=== PATIENT | male | born 1970 | race Caucasian/White ===

== ENCOUNTER 2020-07-06 13:51 | Inpatient (IN) | payer OTHER, SELFPAY ==
[~2020-07-06] VITALS: Ht 175.3 cm; Wt 64.9 kg
[2020-07-06] VITALS (8 sets, daily range): BP systolic 93–117
[2020-07-06] MEDS ORDERED: THIAMINE HCL 100 MG in NS 50 ML IV ONE (14:00)
[2020-07-06] MEDS ORDERED: NACL 0.9% 1,000 ML IV ONE (14:00)
[2020-07-06] MEDS ORDERED: FOLIC ACID 5 MG/ML VIAL IV ONE (14:00)
--- NOTE | 2020-07-06 14:00 | NUR ---
Patient to ER bed 2 to gown for evaluation. Side rails up
--- NOTE | 2020-07-06 14:00 | NUR ---
Pt came to ER with ALOC, reports from [facility] states family called with concerns he has deviated from baseline. Pt abuses ETOH and is currently AOx3 responsive to voice
--- NOTE | 2020-07-06 14:05 | NUR ---
JORDY Sim at bedside examining patient.
[2020-07-06] MEDS ORDERED: FOLIC ACID IV ONE (14:11)
[2020-07-06] MEDS ORDERED: THIAMINE HCL IV ONE (14:11)
[2020-07-06] MEDS ORDERED: NS IV ONE (14:11)
[2020-07-06 14:28] LABS: BASOPHILS % (AUTO) 0.1 % (0.0-2.0); EOSINOPHILS % (AUTO) 0.1 % (0.0-4.0); HEMOGLOBIN 12.3 g/dL (14.0-18.0); LYMPHOCYTES # (AUTO) 1.3 K/uL (1.0-5.5); MEAN CORPUSCULAR HEMOGLOBIN 38 pg (27-31); MEAN CORPUSCULAR HGB CONC 37 % (32-36); MEAN CORPUSCULAR VOLUME 102 fL (79.0-98.0); MONOCYTES # (AUTO) 0.7 K/uL (0.0-1.0); MONOCYTES % (AUTO) 6.5 % (1.7-9.3); NEUTROPHILS # (AUTO) 8.8 K/uL (1.8-7.7); NEUTROPHILS % (AUTO) 81.3 % (40.0-70.0); PLATELET COUNT (AUTO) 396 K/uL (130-430); RED BLOOD CELL COUNT(AUTO) 3.25 MIL/uL (4.2-6.2); RED CELL DISTRIBUTION WIDTH 12.8 % (9.0-15.0); WHITE BLOOD COUNT (AUTO) 10.8 K/uL (4.8-10.8)
[2020-07-06 14:42] LABS: ALANINE AMINOTRANSFERASE 21 U/L (12-78); ALBUMIN 2.4 g/dL (3.4-4.8); ASPARTATE AMINOTRANSFERASE 40 U/L (10-37); CALCIUM 8.9 mg/dL (8.4-11.0); GLUCOSE 180 mg/dL (70-99); SODIUM SERUM 135 mmol/L (136-145); TOTAL BILIRUBIN 2.8 mg/dL (0.0-1.0); UREA NITROGEN, BLOOD 25 mg/dL (8-21)
[2020-07-06 14:54] LABS: ALCOHOL, BLOOD < 3 mg/dL (<10); ANION GAP 1 (5-15); GFR AFRICAN AMERICAN 75 mL/min (>90)
[2020-07-06 14:55] LABS: CHLORIDE 77 mmol/L (98-107); POTASSIUM 1.2 mmol/L (3.5-5.1)
[2020-07-06] MEDS ORDERED: KCL 20 mEq in 100 mL (PREMIX) 100 ML IV ONE (15:00)
--- NOTE | 2020-07-06 15:00 | NUR ---
Patient noted fidgeting with monitoring equipment. Educated pt regarding need for monitoring. Pt states understanding but is uncooperative.
--- NOTE | 2020-07-06 15:40 | NUR ---
Shelly reed in ED - 07/06/20 at 1805 by WILMAR Patient brought to ICU 2 via cele. Report given to receiving RN.
[2020-07-06 16:03] LABS: BILIRUBIN,URINE 3+ (NEGATIVE); CLARITY/URINE CLEAR (CLEAR); GLUCOSE,URINE TRACE (NEGATIVE); KETONES,URINE 2+ (NEGATIVE); LEUKOCYTE ESTERASE ,URINE NEGATIVE (NEGATIVE); NITRITE, URINE POSITIVE (NEGATIVE); PH,URINE 6.5 (5.0-8.0); PROTEIN URINE 2+ (NEGATIVE)
[2020-07-06 16:11] LABS: COLOR,URINE AMBER (YELLOW)
[2020-07-06 16:13] LABS: BLOOD, URINE TRACE (NEGATIVE); UROBILINOGEN,URINE >=8 (0.2-1.0)
--- NOTE | 2020-07-06 16:15 | NUR ---
Physician order given to place soft type restraints to bilateral wrists to prevent pulling out IV and monitoring equipment. Resraints placed with quick-release ties to bed frame. Patient unable to adhere with instructions and is uncooperative with care. Will monitor patient frequently.
--- NOTE | 2020-07-06 16:15 | NUR ---
Noted IV outside of pt, catheter tip intact, bleeding controlled. Educated pt regarding need for treatment, pt uncooperative. # 20 gauge angiocath placed to right FA. Use of asceptic technique. Opsite placed over site. Blood return noted. Flushed with 10 cc of normal saline. No evidence of infiltration noted. Patient tolerated well.
[2020-07-06 16:32] LABS: RBC,URINE 0-3 /HPF (0-3)
[2020-07-06 16:33] LABS: BACTERIA,URINE MANY /HPF (None Seen)
[2020-07-06 16:34] LABS: MUCUS,URINE None Seen /LPF (None Seen)
--- NOTE | 2020-07-06 16:35 | NUR ---
Patient will be admitted to care of Dr. Santoyo. Admitted to ICU. Belongings list completed. Complete and up to date summary report printed. SBAR report to be given at bedside with opportunity for questions.
[2020-07-06 16:47] LABS: BARBITURATE, URINE NEGATIVE (NEG <=200); BENZODIAZEPINE, URINE NEGATIVE (NEG <=150); CANNABINOID, URINE NEGATIVE (NEG <=50); COCAINE, URINE NEGATIVE (NEG <=150); METHAMPHETAMINES SCREEN,URINE NEGATIVE (NEG <=500); OPIATE, URINE NEGATIVE (NEG <=100); PHENCYCLIDINE SCREEN,URINE NEGATIVE (NEG <=25); UR TRICYCLIC ANTIDEPRESSANTS NEGATIVE (NEG <=300); URINE AMPHETAMINE NEGATIVE (NEG <=500); URINE METHADONE NEGATIVE (NEG <=200); URINE OXYCODONE SCREEN NEGATIVE (NEG <=100); URINE PROPOXYPHENE SCREEN NEGATIVE (NEG <=300)
--- NOTE | 2020-07-06 17:40 | NUR ---
Patient brought to ICU 2 via gurney. Report given to receiving RN. Bill rider still infusing, restraints in place for safety.
--- NOTE | 2020-07-06 18:00 | NUR ---
ADMIT NOTE Received pt from ER to the ICU with a diagnosis of Hypokalemia. Admission process initiated. patient oriented to pain management, safety and call light-teach back done. Patient placed in ICU room 2, attached to hospital monitor.
[2020-07-06] MEDS ORDERED: HYDROcodone/ACETAMIN 5-325 MG TAB (NORCO/ VICODIN) PO PRN (18:30)
[2020-07-06] MEDS ORDERED: ACETAMINOPHEN 325 MG TABLET PO PRN (18:30)
[2020-07-06] MEDS ORDERED: LORazepam 2 MG/ML VIAL IVP PRN (18:30)
[2020-07-06] MEDS ORDERED: NALOXONE HCL 0.4 MG/ML AMP (NARCAN) IVP PRN ×2 (18:30)
[2020-07-06] MEDS ORDERED: HYDROcodone/ACETAMIN 10-325 MG TAB PO PRN (18:30)
--- NOTE | 2020-07-06 19:25 | NUR ---
PM SHIFT ASSESSMENT Pt is awake but confused. O2 via NC @ 1L, RR even and unlabored. SR on monitor. Skin warm and dry. IV in place. Belongings at bedside. Safety precautions in place, call light within reach. Will continue to monitor.
[2020-07-06] MEDS: chlordiazePOXIDE HCL 25 MG CAPSULE PO SCH (20:06)
[2020-07-06] MEDS: KCL 10 mEq in D5/0.45NS 1000mL 1,000 ML IV SCH (20:06)
--- NOTE | 2020-07-06 23:55 | NUR ---
HERRON CATH: # 16 FR Herron catheter with 10 cc bulb inserted with use of sterile technique. Bulb inflated with 10 cc sterile water. Immediate return of 200 cc marquez color urine noted. Bedside drainage bag placed below level of bladder. Pt tolerated procedure well.
[2020-07-07] VITALS (24 sets, daily range): BP systolic 97–132
[2020-07-07] MEDS: KCL 10 mEq in D5/0.45NS 1000mL 1,000 ML IV SCH (06:01)
[2020-07-07 06:21] LABS: BASOPHILS % (AUTO) 0.5 % (0.0-2.0); EOSINOPHILS # (AUTO) 0.1 K/uL (0.0-0.4); EOSINOPHILS % (AUTO) 1.3 % (0.0-4.0); HEMATOCRIT 28.1 % (36-54); HEMOGLOBIN 10.4 g/dL (14.0-18.0); LYMPHOCYTES # (AUTO) 1.8 K/uL (1.0-5.5); LYMPHOCYTES % (AUTO) 22.1 % (20.5-51.5); MEAN CORPUSCULAR HEMOGLOBIN 38 pg (27-31); MEAN CORPUSCULAR HGB CONC 37 % (32-36); MEAN CORPUSCULAR VOLUME 102 fL (79.0-98.0); MONOCYTES # (AUTO) 0.7 K/uL (0.0-1.0); MONOCYTES % (AUTO) 8.3 % (1.7-9.3); NEUTROPHILS # (AUTO) 5.4 K/uL (1.8-7.7); NEUTROPHILS % (AUTO) 67.8 % (40.0-70.0); PLATELET COUNT (AUTO) 306 K/uL (130-430); RED BLOOD CELL COUNT(AUTO) 2.76 MIL/uL (4.2-6.2); RED CELL DISTRIBUTION WIDTH 12.9 % (9.0-15.0)
[2020-07-07 07:13] LABS: ALANINE AMINOTRANSFERASE 25 U/L (12-78); ALBUMIN 1.8 g/dL (3.4-4.8); ASPARTATE AMINOTRANSFERASE 31 U/L (10-37); CALCIUM 7.8 mg/dL (8.4-11.0); CREATININE 0.72 mg/dL (0.55-1.30); GLUCOSE 105 mg/dL (70-99); PHOSPHORUS 2.8 mg/dL (2.7-4.5); SODIUM SERUM 133 mmol/L (136-145); TOTAL BILIRUBIN 1.8 mg/dL (0.0-1.0); UREA NITROGEN, BLOOD 14 mg/dL (8-21)
--- NOTE | 2020-07-07 07:20 | NUR ---
Received patient and endorsed report from [facility] shift nurse. Side rails x 3 up.
--- NOTE | 2020-07-07 07:24 | NUR ---
ENDORSEMENT Pt care endorsed to dayshift RN using nursing SBAR.
[2020-07-07 07:50] LABS: CHLORIDE 83 mmol/L (98-107)
[2020-07-07 07:55] LABS: GFR AFRICAN AMERICAN 149 mL/min (>90)
[2020-07-07 07:59] LABS: POTASSIUM 1.3 mmol/L (3.5-5.1)
[2020-07-07 08:00] LABS: ANION GAP < 3 (5-15)
--- NOTE | 2020-07-07 08:22 | NUR ---
Nutrition Update Luis scale 16 noted. Pt admitted for hypokalemia Diet: Regular Diet BMI: 10.7 kg/m2 RD to follow per nutrition care standards.
--- NOTE | 2020-07-07 08:26 | NUR ---
CONSULTATION PAGED PRIORITY: ROUTINE REASON FOR CONSULTATION?:HIGH CO2, HYPOKALEMIA WAS CONSULT CALLED:Y PERSON WHO WAS NOTIFIED:ANDREAS CONSULTING PHYSICIAN:FARHANA MENON PERINATAL EDUCATOR SPECIALTY:NEPHRO PERINATAL EDUCATOR PHONE NUMBER:[phone] REQUESTING PHYSICIAN:HORACIO TRACEY
--- NOTE | 2020-07-07 08:29 | NUR ---
CONSULTATION PAGED PRIORITY: ROUTINE REASON FOR CONSULTATION?:HIGH CO2, HYPOKALEMIA WAS CONSULT CALLED:Y PERSON WHO WAS NOTIFIED:'S PAGER PAGED CONSULTING PHYSICIAN:BACILIO ALEMAN LUMBER YARD WORKER SPECIALTY:PULMONARY LUMBER YARD WORKER PHONE NUMBER:[phone] REQUESTING PHYSICIAN:HORACIO TRACEY
[2020-07-07] MEDS: FOLIC ACID 1 MG TABLET PO SCH (08:38)
[2020-07-07] MEDS: POTASSIUM CHLORIDE 20 MEQ TAB.PRT.SR PO SCH ×2 (08:38→20:19)
[2020-07-07] MEDS: chlordiazePOXIDE HCL 25 MG CAPSULE PO SCH ×3 (08:39→20:47)
[2020-07-07] MEDS: THIAMINE HCL 100 MG TABLET PO SCH (08:39)
[2020-07-07] MEDS: MULTIVITAMINS TAB 1 TABLET PO SCH (08:39)
[2020-07-07] MEDS ORDERED: POTASSIUM CHLORIDE 40 MEQ in NS 250 ML IV ONE ×2 (09:00→16:30)
[2020-07-07] MEDS: POTASSIUM CHLORIDE 40 MEQ in D5NS 1,000 ML IV SCH ×2 (10:30→20:19)
[2020-07-07 12:22] LABS: CALCIUM 7.8 mg/dL (8.4-11.0); CREATININE 0.54 mg/dL (0.55-1.30); GLUCOSE 111 mg/dL (70-99); SODIUM SERUM 138 mmol/L (136-145); UREA NITROGEN, BLOOD 13 mg/dL (8-21)
[2020-07-07 12:33] LABS: CHLORIDE 85 mmol/L (98-107)
[2020-07-07 12:42] LABS: GFR AFRICAN AMERICAN 207 mL/min (>90); POTASSIUM 1.7 mmol/L (3.5-5.1)
[2020-07-07 12:45] LABS: ANION GAP < 3 (5-15)
--- NOTE | 2020-07-07 12:46 | NUR ---
Supervisor Home Economics: social work referral, conduct a DCPA JUKEBOX CHECKER went to see pt. bedside. Pt. was asleep and would not awake after numerous attempts. JUKEBOX CHECKER walked to Rn. station. Erum Conrad stated pt. has been hard to awaken. His potassium is very low and he is very sleepy. She added his Etoh was low and no drugs in his system. JUKEBOX CHECKER will try again later. JUKEBOX CHECKER went to attempt to meet with pt. again. Erum Nicole stated pt still will not awaken. JUKEBOX CHECKER will try again later to meet with pt. Addendum: 07/07/20 at 1400 by Elana Zhu JUKEBOX CHECKER Supervisor Home Economics: follow up JUKEBOX CHECKER went to ICU to attempt to meet with pt. once again. Rn. Conrad stated pt. has been sleeping. A family member called for an update and shared, this is what pt. does, deep sleep and at times not know who she is. She also shared with Rn. Conrad that pt. lost 100 lbs. since February. Pt. lost is job (Covid related), does not eat, just drinks alcohol. Pts. Potassium levels are critical at this time. JUKEBOX CHECKER went to pts. room and attempted to awaken him to no avail.
--- NOTE | 2020-07-07 14:00 | NUR ---
PAGED PAGED FARHANA MENON AT [phone] SPOKE WITH FRANKLIN.
[2020-07-07] MEDS ORDERED: KCL 20 mEq in 100 mL (PREMIX) 100 ML IV ONE (14:30)
--- NOTE | 2020-07-07 17:04 | NUR ---
Oil Field Pumper :Follow up MANAGER DELI went to meet with pt. who was still asleep and would not awaken. MANAGER DELI called and spoke to pts mother who handed phone to her granddaughter as she was hard of hearing. This person is pts. Niece, Raven Alamo (Rn at [facility] in [facility]). She assisted MANAGER DELI in the DCPA. She stated they assisted pt. in getting Medical because he has not been feeling well. MANAGER DELI forwarded the info to Thea . person id, [id number] Customer ID [id number]. MANAGER DELI also sent message to Suzi asking her to add Raven to the contacts with a phone of [phone]. [place] stated pt. was here in 06/27/20 and refused all services. 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 He fell into a deep depression and began heavily drinking more than in the past. He lost 100 lbs since february and has not eaten. Within the last 1-2 months, patient has been falling 2-3 times daily. He use to be a happy drunk , now he says, "Please remember me ok". Pt will try to get out of bed to use the restroom and will not make it so he soils his clothing and his 85 year old mom had to clean him up. When MANAGER DELI asked Raven if pt. has ever been Dx. with depression, she stated he has has episodes of depression a few years back. To her knowledge, he has never been Dx. because he never goes to the Drs. When asked she stated pt. has been saying to her, "Remember me ok". When asked she believes pt. has been suicidal. A while ago, her father, pts. brother took pts. guns because he has a safe to store them. Pt. has been asking for them back on a continuous basis. MANAGER DELI called to speak to Erum Conrad, but she was with a pt. MANAGER DELI spoke to Zoie Mendosa who will share with Rn. MANAGER DELI is requesting to request a psyc consult when patient becomes coherent for the above reasons mentioned. MANAGER DELI will remain available for follow up.
--- NOTE | 2020-07-07 17:06 | NUR ---
MD Go at bedside, ordered BMP every 6 hours x 6, bilateral wrist restraints due to patient attempting to remove lines and tubes despite educations of pros and cons x 3, and to ask MD Preston about diamox. Orders placed. Addendum: 07/07/20 at 1710 by Anamaria Vasquez RN wrong note: bilateral wrist restraints not ordered.
--- NOTE | 2020-07-07 17:36 | NUR ---
PAGED PAGED FARHANA MENON AT [phone]PHAM FINNEY SHERI RESOURCE ROOM TEACHER.
--- NOTE | 2020-07-07 17:51 | NUR ---
CONSULTATION PAGED PRIORITY: ROUTINE REASON FOR CONSULTATION?:SUICIDAL IDEATION WAS CONSULT CALLED:Y PERSON WHO WAS NOTIFIED:JEAN-CLAUDE CONSULTING PHYSICIAN:DEANDRE ARANA ( INSURANCE RISK SURVEYOR) FOREIGN LANGUAGE PROFESSOR SPECIALTY:PSYCH FOREIGN LANGUAGE PROFESSOR PHONE NUMBER:[phone] REQUESTING PHYSICIAN:HORACIO TRACEY
--- NOTE | 2020-07-07 17:55 | NUR ---
MD Elias called, informed MD Go permission of Diamox use, MD Elias approved. Paged MD Preston.
[2020-07-07 18:07] LABS: CALCIUM 7.9 mg/dL (8.4-11.0); CREATININE 0.67 mg/dL (0.55-1.30)
--- NOTE | 2020-07-07 18:10 | NUR ---
MD Santoyo at bedside, requested DVT prophylaxis, new order bilateral SCDs. Informed certified social workers in health care's request to inform MD Santoyo of family's request for psych consult due to patient requesting gun back and telling family to remember him always, MD Santoyo stated will put in psych consult order himself.
--- NOTE | 2020-07-07 18:20 | NUR ---
MD Go called back, new order Diamox 250 mg every 8 hours x 3 doses. Orders placed.
[2020-07-07 18:24] LABS: POTASSIUM 1.9 mmol/L (3.5-5.1)
--- NOTE | 2020-07-07 18:52 | NUR ---
MD Go paged for latest potassium 1.9 and CO2 at 59 from the latest BMP drawn from 1800, MD Go stated to continue to monitor and only call if potassium decreases and CO2 increases.
--- NOTE | 2020-07-07 19:20 | NUR ---
Endorsed patient and gave report to NOC shift nurse. Side rails x 3 up. Call light with in reach.
--- NOTE | 2020-07-07 19:35 | NUR ---
OPENING NOTE: RECEIVED SBAR REPORT FROM OFFCOMING RN FOR CONTINUITY OF CARE. PT RESTING IN BED, NO S/S OF ACUTE DISTRESS NOTED. PT ON 2L OF O2 VIA NC, OXYGEN SATURATION MAINTAINED ABOVE 90%. KCHL IN D5 NS INFUSING @ 100 ML/HR. HERRON CATHETER IN PLACE AND DRAINING TO GRAVITY. WILL CONTINUE TO MONITOR AND ASSESS.
[2020-07-07] MEDS: ONDANSETRON HCL 4 MG/2 ML VIAL IVP PRN (20:36)
--- NOTE | 2020-07-07 21:00 | NUR ---
PT RESTING IN BED, A/O X 2 (PERSON AND PLACE). PT REMAINS CONFUSED AND MUMBLES AND SLURS WORDS. PT ABLE TO FOLLOW SIMPLE COMMANDS AND IS REDIRECTABLE. PT ON 2 L O2 VIA NC, PT'S O2 SATURATION ABOVE 90%. PT REMOVES NC AT TIMES AND SATURATIONS MAINTAINED BUT WILL DROP AT TIMES WHEN SLEEPING. REPLACED PT'S NC TO MAINTAIN OXYGEN SATURATION ABOVE 90%. ENCOURAGED PO INTAKE, PT TOLERATED WELL BUT NEEDS ASSISTANCE. K CHL 40 MEQ INFUSING @ 100 ML/HR. HERRON CATHETER IN PLACE AND DRAINING TO GRAVITY, KOLE URINE NOTED. WILL CONTINUE TO MONITOR AND ASSESS.
[2020-07-08] VITALS (16 sets, daily range): BP systolic 92–136
[2020-07-08 00:49] LABS: CALCIUM 7.7 mg/dL (8.4-11.0); CHLORIDE 94 mmol/L (98-107); GLUCOSE 107 mg/dL (70-99); SODIUM SERUM 139 mmol/L (136-145); UREA NITROGEN, BLOOD 14 mg/dL (8-21)
[2020-07-08 00:55] LABS: GFR AFRICAN AMERICAN 183 mL/min (>90)
[2020-07-08 00:56] LABS: POTASSIUM 1.8 mmol/L (3.5-5.1)
[2020-07-08 00:57] LABS: ANION GAP < 3 (5-15)
--- NOTE | 2020-07-08 01:00 | NUR ---
DR. ROSALINA SHARMA PAGED AT THIS TIME FOR ORDERS AT [phone]. WILL AWAIT MD CALL BACK
[2020-07-08] MEDS ORDERED: POTASSIUM CHLORIDE 40 MEQ in NS 250 ML IV ONE (01:15)
[2020-07-08] MEDS ORDERED: POTASSIUM CHLORIDE 20 MEQ in NS 250 ML IV ONE (01:15)
--- NOTE | 2020-07-08 01:15 | NUR ---
DR. ROSALINA BAHENA:CRITICAL LABS (K AND CO2) DR KAT REFRIGERATION BRAZER/SOLDERER, INFORMED DR. KAT OF PT'S K 1.8 (DROPPED FROM LAST K) AND CO2 49 (DROPPED FROM LAST CO2). ORDERED 60 MEQ K RIDER TO BE ADMINISTERED AND TO MONITOR PT'S NEXT K IN THE AM. WILL FOLLOW THROUGH WITH ORDERS.
[2020-07-08] MEDS: KCL 20 mEq in 100 mL (PREMIX) 100 ML IV SCH ×3 (01:47→05:34)
[2020-07-08 06:27] LABS: ALANINE AMINOTRANSFERASE 21 U/L (12-78); ALBUMIN 1.6 g/dL (3.4-4.8); ASPARTATE AMINOTRANSFERASE 28 U/L (10-37); CALCIUM 7.7 mg/dL (8.4-11.0); CHLORIDE 97 mmol/L (98-107); CREATININE 0.69 mg/dL (0.55-1.30); GLUCOSE 106 mg/dL (70-99); PHOSPHORUS 2.5 mg/dL (2.7-4.5); SODIUM SERUM 136 mmol/L (136-145); TOTAL BILIRUBIN 1.2 mg/dL (0.0-1.0); UREA NITROGEN, BLOOD 8 mg/dL (8-21)
[2020-07-08 06:28] LABS: GFR AFRICAN AMERICAN 156 mL/min (>90); POTASSIUM 2.3 mmol/L (3.5-5.1)
[2020-07-08 06:31] LABS: ANION GAP < 3 (5-15)
[2020-07-08] MEDS: POTASSIUM CHLORIDE 40 MEQ in D5NS 1,000 ML IV SCH ×2 (06:56→19:24)
--- NOTE | 2020-07-08 07:20 | NUR ---
CLOSING NOTE: ENDORSED SBAR REPORT TO ONCOMING RN FOR CONTINUITY OF CARE.
--- NOTE | 2020-07-08 07:30 | NUR ---
Opening Note Received bedside report from endorsing RN for continuation of care. Received patient lethargic and resting in bed, arousable to voice. Patient denies any pain or SOB at this time. No signs or symptoms of acute distress noted. Bed locked in lowest position, bed alarm on, and call light within reach. Education provided on use of call light and patient verbalized understanding. Fall and safety precautions in place.
[2020-07-08] MEDS: chlordiazePOXIDE HCL 25 MG CAPSULE PO SCH (09:00)
[2020-07-08 09:43] LABS: BASOPHILS # (AUTO) 0.1 K/uL (0.0-0.2); BASOPHILS % (AUTO) 0.7 % (0.0-2.0); EOSINOPHILS # (AUTO) 0.1 K/uL (0.0-0.4); HEMATOCRIT 26.2 % (36-54); HEMOGLOBIN 9.2 g/dL (14.0-18.0); LYMPHOCYTES # (AUTO) 1.7 K/uL (1.0-5.5); LYMPHOCYTES % (AUTO) 20.2 % (20.5-51.5); MEAN CORPUSCULAR HEMOGLOBIN 38 pg (27-31); MEAN CORPUSCULAR HGB CONC 35 % (32-36); MEAN CORPUSCULAR VOLUME 108 fL (79.0-98.0); MONOCYTES # (AUTO) 0.6 K/uL (0.0-1.0); MONOCYTES % (AUTO) 7.1 % (1.7-9.3); NEUTROPHILS # (AUTO) 5.8 K/uL (1.8-7.7); PLATELET COUNT (AUTO) 262 K/uL (130-430); RED BLOOD CELL COUNT(AUTO) 2.43 MIL/uL (4.2-6.2); RED CELL DISTRIBUTION WIDTH 13.5 % (9.0-15.0); WHITE BLOOD COUNT (AUTO) 8.2 K/uL (4.8-10.8)
[2020-07-08] MEDS: FOLIC ACID 1 MG TABLET PO SCH (09:53)
[2020-07-08] MEDS: THIAMINE HCL 100 MG TABLET PO SCH (09:53)
[2020-07-08] MEDS: MULTIVITAMINS TAB 1 TABLET PO SCH (09:53)
[2020-07-08] MEDS: POTASSIUM CHLORIDE 20 MEQ TAB.PRT.SR PO SCH ×2 (09:53→20:37)
[2020-07-08] MEDS ORDERED: POTASSIUM CHLORIDE 20 MEQ TAB.PRT.SR PO ONE ×2 (10:15→19:00)
--- NOTE | 2020-07-08 10:15 | NUR ---
Dr. Go ([facility]) at bedside examining patient. New orders received.
--- NOTE | 2020-07-08 10:24 | NUR ---
Telemetry Status Patient stable to transfer to telemetry unit per Dr. Go ([facility]). Patient will remain in ICU and be monitored under telemetry status until hospital room and bed become available.
--- NOTE | 2020-07-08 10:38 | NUR ---
Dr. Jimenez (PSYCH) at bedside examining patient. Per Dr. Jimenez, patient is not suicidal. New orders received.
[2020-07-08] MEDS ORDERED: chlordiazePOXIDE HCL 25 MG CAPSULE PO PRN (10:45)
--- NOTE | 2020-07-08 11:55 | NUR ---
Dr. Rakan Santoyo at bedside examining patient. New orders received.
[2020-07-08 12:14] LABS: CALCIUM 7.7 mg/dL (8.4-11.0); CREATININE 0.73 mg/dL (0.55-1.30)
[2020-07-08 12:17] LABS: POTASSIUM 2.2 mmol/L (3.5-5.1)
--- NOTE | 2020-07-08 13:05 | NUR ---
Dietitian Recommendations * Continue regular diet * Recommend high kcal/pro snacks TID * Recommend Ensure Enlive TID (Provides additional 1050 kcals, 60 g Pro per day) Please see Nutrition Assessment for details. SS, RD
--- NOTE | 2020-07-08 14:20 | NUR ---
Patient is lethargic but arousable answer simple question drowsy, vitals sign WNL ,telemetry NSR, with IV fluid infusing well safety/fall precaution initiated,will monitor
--- NOTE | 2020-07-08 14:26 | NUR ---
Transfer to Telemetry Patient transferred to telemetry unit room 112-B via wheelchair on continuous machine precision etcher, accompanied by ACLKhanh RN. Endorsed bedside report to Holly VALDEZ using SBAR approach for continuation of care.
--- NOTE | 2020-07-08 15:00 | NUR ---
GI Had a bowel movement semi loose stool brown color perineal care given , patient able to turn with help as instructed , no sign of pressure sore , kept/dry clean.
--- NOTE | 2020-07-08 17:00 | NUR ---
Neuro Patient is lethargic but easily arousable compare earlier , repositioned,needs attended.
[2020-07-08] MEDS: ONDANSETRON HCL 4 MG/2 ML VIAL IVP PRN (18:07)
--- NOTE | 2020-07-08 18:19 | NUR ---
Assisted in feeding no aspiration with poor appetite.
[2020-07-08 18:41] LABS: CALCIUM 8.1 mg/dL (8.4-11.0); CHLORIDE 102 mmol/L (98-107); CREATININE 0.64 mg/dL (0.55-1.30); GLUCOSE 118 mg/dL (70-99); SODIUM SERUM 143 mmol/L (136-145); UREA NITROGEN, BLOOD 8 mg/dL (8-21)
[2020-07-08 18:46] LABS: GFR AFRICAN AMERICAN 170 mL/min (>90); POTASSIUM 2.3 mmol/L (3.5-5.1)
[2020-07-08 18:48] LABS: ANION GAP < 3 (5-15)
--- NOTE | 2020-07-08 18:48 | NUR ---
Paged Dr. HUTCHINSON for critical lab result K 2.3 , CO2 40
--- NOTE | 2020-07-08 19:10 | NUR ---
OPENING NOTE RECEIVE REPORT AT BEDSIDE. PATIENT AOX1. AWAKE BUT LETHARGIC, ABLE TO FOLLOW ON COMMANDS. NO SIGNS OF RESPIRATORY DISTRESS AND DISCOMFORT NOTED. ON ROOM AIR TOLERATING WELL, O2 SATURATION OF 96%. HERRON CATHETER DRAINING WELL. IVF INFUSING WELL. SCD'S OPERATING WELL. CALL LIGHT WITHIN REACH. BED LOCKED AND IN LOWEST POSITION. SAFETY PRECAUTIONS IN PLACE. BED ALARM ON. WILL CONTINUE TO MONITOR PATIENT.
--- NOTE | 2020-07-08 20:37 | NUR ---
MED PASS DUE MEDICATION GIVEN AT THIS TIME. PATIENT WAS EDUCATED ON MEDICATION THAT WAS TAKEN FOR ITS PURPOSE, SIDE EFFECT AND BENEFITS. PATIENT UNABLE TO VERBALIZED UNDERSTANDING. PATIENT IS DROWSY. NO SIGNS OF RESPIRATORY DISTRESS AND DISCOMFORT NOTED. ON ROOM AIR TOLERATING WELL AT 96%. CALL LIGHT WITHIN REACH. SAFETY PRECAUTIONS IN PLACE. WILL CONTINUE TO MONITOR PATIENT
--- NOTE | 2020-07-08 23:47 | NUR ---
KIRSTIN CARE/ VITAL SIGNS KIRSTIN CARE, VITAL SIGNS DONE AT THIS TIME. PATIENT TOLERATED WELL. NO SIGNS OF RESPIRATORY DISTRESS AND DISCOMFORT NOTED. BREATHING EVEN AND UNLABORED. ON ROOM AIR TOLERATING WELL. O2 SATURATION OF 96%. DROWSY BUT PATIENT FOLLOW ON COMMANDS. IVF INFUSING WELL. SCD'S OPERATING WELL. CALL LIGHT WITHIN REACH. SAFETY PRECAUTIONS IN PLACE. WILL CONTINUE TO MONITOR PATIENT
[2020-07-09 02:02] VITALS: BP_SYST 126
--- NOTE | 2020-07-09 02:15 | NUR ---
RN ROUNDS PATIENT ASLEEP AT THIS TIME. NO SIGNS OF RESPIRATORY DISTRESS AND DISCOMFORT NOTED. BREATHING EVEN AND UNLABORED. ON ROOM AIR TOLERATING WELL, 02 SATURATION OF 95%. IVF INFUSING WELL. CALL LIGHT WITHIN REACH. SAFETY PRECAUTIONS IN PLACE. WILL CONTINUE TO MONITOR PATIENT
[2020-07-09] MEDS: POTASSIUM CHLORIDE 40 MEQ in D5NS 1,000 ML IV SCH ×3 (03:55→23:24)
--- NOTE | 2020-07-09 04:26 | NUR ---
RN ROUNDS PATIENT ASLEEP AT THIS TIME. NO SIGNS OF RESPIRATORY DISTRESS AND DISCOMFORT NOTED. BREATHING EVEN AND UNLABORED. ON ROOM AIR TOLERATING WELL, 02 SATURATION OF 97%. IVF INFUSING WELL. CALL LIGHT WITHIN REACH. SAFETY PRECAUTIONS IN PLACE. WILL CONTINUE TO MONITOR PATIENT
[2020-07-09 04:41] LABS: CALCIUM 7.7 mg/dL (8.4-11.0); CREATININE 0.53 mg/dL (0.55-1.30)
[2020-07-09 04:43] LABS: POTASSIUM 2.6 mmol/L (3.5-5.1)
[2020-07-09 04:44] LABS: PHOSPHORUS 2.4 mg/dL (2.7-4.5)
--- NOTE | 2020-07-09 04:45 | NUR ---
HIGH ALERT NOTE: Called Dr. Santoyo call back at [phone]. identified within the medical roster to verify physician authenticity.
--- NOTE | 2020-07-09 04:45 | NUR ---
Paged Dr. Santoyo Rakan
[2020-07-09] MEDS ORDERED: POTASSIUM CHLORIDE 20 MEQ TAB.PRT.SR PO ONE (05:15)
--- NOTE | 2020-07-09 06:29 | NUR ---
CLOSING NOTE PATIENT ASLEEP AT THIS TIME. NO SIGNS OF RESPIRATORY DISTRESS AND DISCOMFORT NOTED. BREATHING EVEN AND UNLABORED. ON ROOM AIR, TOLERATING WELL. IVF INFUSING WELL. SCD'S OPERATING WELL. CALL LIGHT WITHIN REACH. SAFETY AND SEIZURE PRECAUTIONS IN PLACE. ALL NEEDS MET THROUGHOUT THE SHIFT. WILL CONTINUE TO MONITOR PATIENT UNTIL ENDORSE TO ONCOMING SHIFT NURSE FOR CONTINUITY OF CARE
[2020-07-09 08:00] VITALS: BP_SYST 98
--- NOTE | 2020-07-09 08:00 | NUR ---
initial notes rec patient awake with hob elevated and confused. r forearm iv is intact. no infiltration noted. resp easy and unlabored. no sob noted. call light within reached. denies pain. bed to the lowest position and side rails up and locked.
--- NOTE | 2020-07-09 10:30 | NUR ---
rounds pt's due meds were given and day[place] well. with periods of confusion still. turned repsotion for comfort. call light within reached.
[2020-07-09] MEDS: POTASSIUM CHLORIDE 20 MEQ TAB.PRT.SR PO SCH ×2 (10:46→20:07)
[2020-07-09] MEDS: FOLIC ACID 1 MG TABLET PO SCH (10:47)
[2020-07-09] MEDS: THIAMINE HCL 100 MG TABLET PO SCH (10:47)
[2020-07-09] MEDS: MULTIVITAMINS TAB 1 TABLET PO SCH (10:47)
--- NOTE | 2020-07-09 12:00 | NUR ---
rounds sleeps at intervals, no sob noted.
[2020-07-09 12:15] VITALS: BP_SYST 109
--- NOTE | 2020-07-09 12:46 | NUR ---
CONSULTATION PAGED/CALLED Reason for Consultation: ANEMIA Person Who was Notified: BABS Consulting Physician: Tank GALLEGOS Aerial Erector Specialty: GI Ordering Physician: DR. KENNEDY
--- NOTE | 2020-07-09 12:47 | NUR ---
Faculty Member: met with pt. INTERIOR ASSEMBLIES INSTALLER introduced self to pt. bedside. He had one eye open . He said he feels horrible. It was barely audible. He then pointed to his soiled sheets. Pt. had a BM. INTERIOR ASSEMBLIES INSTALLER told him she would go find his Rn. INTERIOR ASSEMBLIES INSTALLER could not find Rn. Larson. She told charge nurse, Lupe. about pts. current situation. She will send someone to clean pt. up. INTERIOR ASSEMBLIES INSTALLER will follow up later.
--- NOTE | 2020-07-09 13:32 | NUR ---
rounds seen by dr peck and dr peña and with orders.
--- NOTE | 2020-07-09 15:00 | NUR ---
rounds asleep at this time. call light within reached. no sob noted.
[2020-07-09 16:22] VITALS: BP_SYST 105
--- NOTE | 2020-07-09 17:00 | NUR ---
rounds refused telebox at this time. with periods of confusion . mother called and updated re pt's condition. no sob noted.
--- NOTE | 2020-07-09 19:00 | NUR ---
closing notes pt is confused and tried to get oob. had a bm large in amount. pt kept dry and clean. assisted at bedside with unsteady gait and back to bed. resp easy and unlabored. no sob noted. call light within reached.
--- NOTE | 2020-07-09 19:20 | NUR ---
OPENING NOTE RECEIVE REPORT AT BEDSIDE. PATIENT AOX2. AWAKE SITTING IN BED, BEING FED BY AOC OPERATIONS INTELLIGENCE CHIEF. ABLE TO FOLLOW ON COMMANDS, CONFUSED AT TIMES. NO SIGNS OF RESPIRATORY DISTRESS AND DISCOMFORT NOTED. ON ROOM AIR TOLERATING WELL, O2 SATURATION OF 96%. HERRON CATHETER DRAINING WELL. IVF INFUSING WELL. RE ATTACHED SCD'S. CALL LIGHT WITHIN REACH. BED LOCKED AND IN LOWEST POSITION. SAFETY AND SEIZURE PRECAUTIONS IN PLACE. BED ALARM ON. WILL CONTINUE TO MONITOR PATIENT.
[2020-07-09 20:00] VITALS: BP_SYST 107
--- NOTE | 2020-07-09 20:07 | NUR ---
MED PASS DUE MEDICATION GIVEN AT THIS TIME. PATIENT WAS EDUCATED ON MEDICATION THAT WAS TAKEN FOR ITS PURPOSE, SIDE EFFECT AND BENEFITS. PATIENT UNABLE TO VERBALIZED UNDERSTANDING. PATIENT IS CONFUSED AT TIMES. NO SIGNS OF RESPIRATORY DISTRESS AND DISCOMFORT NOTED. ON ROOM AIR TOLERATING WELL AT 96%. HERRON DRAINING BY GRAVITY. CALL LIGHT WITHIN REACH. SAFETY PRECAUTIONS IN PLACE. WILL CONTINUE TO MONITOR PATIENT
--- NOTE | 2020-07-09 22:00 | NUR ---
HERRON CATHETER NOTE PATIENT COMPLAINTS PAIN IN PERINEAL AREA, PATIENT ATTEMPT TO PULLED OUT HERRON CATHETER. SWELLING IN THE PERINEAL AREA. 10 CC OF FLUID REMOVED TO DEFLATED THE BALLOON FROM THE HERRON CATHETER. PATIENT VERBALIZED FEELING RELIEVED AFTER REMOVING CATHETER. CHARGE NURSE AWARE. WILL CONTINUE TO MONITOR URINE OUTPUT. PATIENT IS CONFUSED. NO SIGNS OF RESPIRATORY DISTRESS NOTED. BREATHING EVEN AND UNLABORED. CALL LIGHT WITHIN REACH. SAFETY PRECAUTIONS IN PLACE. WILL CONTINUE TO MONITOR PATIENT
--- NOTE | 2020-07-09 23:45 | NUR ---
RN ROUNDS PATIENT ASLEEP AT THIS TIME. NO SIGNS OF RESPIRATORY DISTRESS AND DISCOMFORT NOTED. BREATHING EVEN AND UNLABORED. ON ROOM AIR TOLERATING WELL. IVF INFUSING WELL. CALL LIGHT WITHIN REACH. SAFETY PRECAUTIONS IN PLACE. WILL CONTINUE TO MONITOR PATIENT
[2020-07-10 00:35] VITALS: BP_SYST 109
--- NOTE | 2020-07-10 04:00 | NUR ---
IV RE INSERTION/ KIRSTIN CARE IV RE INSERTION AT THIS TIME ON THE LEFT FOREARM #20, KIRSTIN CARE DONE WELL, PATIENT TOLERATED WELL. PATIENT SELF TURNED NOW. NO SIGNS OF RESPIRATORY DISTRESS AND DISCOMFORT NOTED. BREATHING EVEN AND UNLABORED. ON ROOM AIR TOLERATING WELL. IVF INFUSING WELL, PATENCY NOTED. CALL LIGHT WITHIN REACH. SAFETY PRECAUTIONS IN PLACE. WILL CONTINUE TO MONITOR PATIENT
[2020-07-10 06:49] LABS: BASOPHILS # (AUTO) 0.1 K/uL (0.0-0.2); BASOPHILS % (AUTO) 0.7 % (0.0-2.0); EOSINOPHILS # (AUTO) 0.1 K/uL (0.0-0.4); HEMATOCRIT 33.2 % (36-54); HEMOGLOBIN 11.9 g/dL (14.0-18.0); LYMPHOCYTES # (AUTO) 2.1 K/uL (1.0-5.5); LYMPHOCYTES % (AUTO) 22.8 % (20.5-51.5); MEAN CORPUSCULAR HEMOGLOBIN 38 pg (27-31); MEAN CORPUSCULAR HGB CONC 36 % (32-36); MEAN CORPUSCULAR VOLUME 107 fL (79.0-98.0); MONOCYTES # (AUTO) 0.4 K/uL (0.0-1.0); MONOCYTES % (AUTO) 4.1 % (1.7-9.3); NEUTROPHILS # (AUTO) 6.6 K/uL (1.8-7.7); NEUTROPHILS % (AUTO) 71.4 % (40.0-70.0); PLATELET COUNT (AUTO) 404 K/uL (130-430); RED BLOOD CELL COUNT(AUTO) 3.09 MIL/uL (4.2-6.2); RED CELL DISTRIBUTION WIDTH 12.9 % (9.0-15.0); WHITE BLOOD COUNT (AUTO) 9.3 K/uL (4.8-10.8)
[2020-07-10 07:04] LABS: CALCIUM 8.5 mg/dL (8.4-11.0); CREATININE 0.65 mg/dL (0.55-1.30); POTASSIUM 3.1 mmol/L (3.5-5.1)
--- NOTE | 2020-07-10 07:30 | NUR ---
Opening Note Patient in bed, NAD. Patient watching television. A/Ox1 to self. Denies complaints at this time. Bed in low and locked position, side rails up x3, bed alarm on, call light within reach. Bathroom needs addressed. Addendum: 07/10/20 at 1010 by Daja Marroquin RN [email or web address]
[2020-07-10 08:00] VITALS: BP_SYST 118
--- NOTE | 2020-07-10 08:00 | NUR ---
Breakfast OVERHEAD DISTRIBUTION ENGINEER assist with feeding patient. Patient tolerated well. Denies choking/difficulty swallowing.
[2020-07-10] MEDS: POTASSIUM CHLORIDE 20 MEQ TAB.PRT.SR PO SCH ×2 (08:37→20:59)
[2020-07-10] MEDS: FOLIC ACID 1 MG TABLET PO SCH (08:37)
[2020-07-10] MEDS: MULTIVITAMINS TAB 1 TABLET PO SCH (08:37)
[2020-07-10] MEDS: THIAMINE HCL 100 MG TABLET PO SCH (08:38)
--- NOTE | 2020-07-10 10:10 | NUR ---
Bathroom Patient incontinent to urine, gown soiled. Changed patient's gown and placed clean chux underneath patient.
[2020-07-10] MEDS ORDERED: FLU VACC QS2020-21 (6 mos & up) 0.5 ML/SYRINGE I.M. PRN (10:30)
--- NOTE | 2020-07-10 10:50 | NUR ---
Flu shot administered Administered the flu shot to the patient. IM injection to left deltoid, patient tolerated administration well.
--- NOTE | 2020-07-10 11:29 | NUR ---
Linen Change Patient incontinent to urine and stool. Changed patient's gown and chux. Patient cleaned. Bed alarm on, side rails up x3, call light within reach, bed in low and locked position.
[2020-07-10] MEDS: POTASSIUM CHLORIDE 40 MEQ in D5NS 1,000 ML IV SCH ×2 (11:30→21:01)
--- NOTE | 2020-07-10 12:39 | NUR ---
Ambulation to restroom Patient ambulated to restroom with use of walker and nurse standby. Patient high fall risk and requires nurse assist to open door and move things out of the way. Gait unsteady and uneven. Patient able to ambulate back to bed with more control. Denies dizziness/lightheaded with ambulation. bed in low and locked position, side rails up x3, call light within reach.
[2020-07-10 13:14] VITALS: BP_SYST 112
--- NOTE | 2020-07-10 14:06 | NUR ---
Supervisor Sulfuric Acid Plant Notes: HAND SALTER met pt at bedside who appears to be alert and oriented x4. Pt has been seen by psych MD and does not qualify for LPS hold. Pt states he started drinking heavily 1.5 months ago. He drinks 1-2 shots of whisky a day and considers self as having "drinking problems". Pt denies any treatment history and is currently not interested in voluntary substance abuse admissions. Pt states his triggers to start drinking heavily is when he lost his job in February due to Covid. Pt denies being hopeless and denies having thoughts of hurting self/others and no history of any psych admissions. Pt is not connected to any mental health providers. HAND SALTER provided pt with outpatient mental health and substance use/abuse resources. SS will remain available when needed.
--- NOTE | 2020-07-10 16:00 | NUR ---
Linen Change Patient incontinent to urine. Linens changed and patient cleaned. Patient educated on using urinal when he feels he needs to void. Bed alarm on, bed in low and locked position, call light within reach. NAD. Provided patient with sandwich and juice.
[2020-07-10 16:56] VITALS: BP_SYST 114
--- NOTE | 2020-07-10 17:30 | NUR ---
Bathroom Patient ambulated to restroom with use of walker and MUSIC THEORY PROFESSOR standby. Ambulatory with unsteady gait. Patient escorted back to [facility]. Bed in low and locked position, side rails up x3, call light within reach, bed alarm on.
--- NOTE | 2020-07-10 18:45 | NUR ---
Closing Note Patient in bed, NAD, A/Ox4, eating dinner at this time. Bathroom needs addressed. Peripheral IV infusing at 100 ml/hr. Bed in low and locked position, side rails up x3, call light within reach, bed alarm on. SCDs applied. Will endorse care to NOC RN.
[2020-07-10 20:00] VITALS: BP_SYST 114
[2020-07-10] MEDS ORDERED: MIRTAZAPINE 15 MG TABLET PO SCH (21:00)
--- NOTE | 2020-07-10 21:35 | NUR ---
PATIENT IN BED. PATIENT HAD A LOOSE BM ALL OVER THE FLOOR. NO ACUTE DISTRESS NOTED. WILL CONTINUE TO MONITOR.
[2020-07-10] MEDS ORDERED: KCL 40mEq in D5/0.45NS 1000 mL 1,000 ML IV ONE (23:55)
[2020-07-11] VITALS: BP_SYST 120
[2020-07-11] MEDS: KCL 40mEq in D5/0.45NS 1000 mL 1,000 ML IV SCH ×2 (00:22→09:37)
[2020-07-11 06:54] LABS: BASOPHILS % (AUTO) 0.5 % (0.0-2.0); EOSINOPHILS # (AUTO) 0.1 K/uL (0.0-0.4); HEMATOCRIT 25.8 % (36-54); HEMOGLOBIN 9.3 g/dL (14.0-18.0); LYMPHOCYTES # (AUTO) 1.8 K/uL (1.0-5.5); LYMPHOCYTES % (AUTO) 20.1 % (20.5-51.5); MEAN CORPUSCULAR HEMOGLOBIN 38 pg (27-31); MEAN CORPUSCULAR HGB CONC 36 % (32-36); MEAN CORPUSCULAR VOLUME 106 fL (79.0-98.0); MONOCYTES # (AUTO) 0.5 K/uL (0.0-1.0); MONOCYTES % (AUTO) 5.4 % (1.7-9.3); NEUTROPHILS # (AUTO) 6.4 K/uL (1.8-7.7); PLATELET COUNT (AUTO) 342 K/uL (130-430); RED BLOOD CELL COUNT(AUTO) 2.43 MIL/uL (4.2-6.2); WHITE BLOOD COUNT (AUTO) 8.8 K/uL (4.8-10.8)
[2020-07-11 07:30] LABS: ALBUMIN 1.6 g/dL (3.4-4.8); CALCIUM 7.4 mg/dL (8.4-11.0); CREATININE 0.56 mg/dL (0.55-1.30); POTASSIUM 3.5 mmol/L (3.5-5.1); TOTAL BILIRUBIN 0.6 mg/dL (0.0-1.0)
[2020-07-11 08:00] VITALS: BP_SYST 121
--- NOTE | 2020-07-11 08:00 | NUR ---
ASSUMPTION OF CARE: RECEIVED PT A/A/OX4, DX:ELECTROLYTE IMBALANCE, R/T HYPOKALEMIA, SEVERE METABOLIC ALKALOSIS, VSS, AFEBRILE, NO C/O PAIN OR DISCOMFORT, BREATH SOUNDS ARE CLEAR, BREATHING UNLABORED, IV SITE INTACT, PATENT, NO REDNESS OR SWELLING, DENIES HAVING DIARRHEA AT THIS TIME, REORIENTED TO UNIT, CALL LIGHT PLACED WITHIN REACH, ROOM CLOSE TO NURSES STATION, WILL CONT' TO MONITOR AND ASSESS.
--- NOTE | 2020-07-11 09:15 | NUR ---
CLIENT DEVELOPMENT MANAGER: MORNING MEDS GIVEN, PER ORDERED BY Finesse, TOLERATED WELL, WILL CONT' TO MONITOR AND ASSESS.
[2020-07-11] MEDS: THIAMINE HCL 100 MG TABLET PO SCH (09:35)
[2020-07-11] MEDS: MULTIVITAMINS TAB 1 TABLET PO SCH (09:35)
[2020-07-11] MEDS: POTASSIUM CHLORIDE 20 MEQ TAB.PRT.SR PO SCH (09:35)
[2020-07-11] MEDS: FOLIC ACID 1 MG TABLET PO SCH (09:35)
[2020-07-11] MEDS ORDERED: POTASSIUM CHLORIDE 20 MEQ TAB.PRT.SR PO ONE (11:15)
--- NOTE | 2020-07-11 12:00 | NUR ---
NURSES NOTES: PT RESTING IN POSITION OF COMFORT, NO C/O PAIN OR DISCOMFORT, NO S/S OF DISTRESS, VSS, ORIENTED TO UNIT, CALL LIGHT PLACED WITHIN REACH, WILL CONT' TO MONITOR AND ASSESS.
[2020-07-11 12:49] VITALS: BP_SYST 111
--- NOTE | 2020-07-11 14:20 | NUR ---
Nutrition F/U Admitting Diagnosis: Hypokalemia Medical History Comment: Pertinent medical info per MD note: altered mental status, severe alcohol dependence, anemia, hypokalemia, metabolic alkalosis, hyperglycemia per MD notes. 07/11 MD notes: Suicidal ideation, depressive mood disorder COVID-19 negative 07/06 Subjective Information Pt out of ICU and is now in room 112B. Pt seen in bed, sleeping, opened his eyes and answered some of RD questions but was noticeably very lethargic during visit. Pt does not appear underweight/thin. Pt verbalized that he continues to drink Ensure only if he receives the flavor that he likes. RD asked for flavor preference and RD to note in [employer]. Psych following pt and he was started on remeron 07/10 which will also help with his appetite. Last BM was this morning, and RN Toyin reported that pt was having diarrhea per nocturnal RN but has since been resolved per pt this morning. RN notes denied any chewing or swallowing difficulty. Pt may benefit from Banatrol if diarrhea persists. New weight was entered 07/10: 143# which makes pt of adequate weight and no longer underweight as previously documented. Current Diet Order/Nutrition Support: Regular Diet, Ensure high Protein TID. Pertinent Medications thiamine, folic acid, MVI, Zofran, Remeron Pertinent Labs 07/11 Na 142WNL, K 3.5WNL, BG 91WNL, BUN 6L, CRE 0.56WNL Skin Integrity Comment: Luis scale 20, some scabs noted; no PI reported Current % PO Poor 31% average of 8 meals in 3 days Estimated Energy Expenditure (kcals/day) 0251-9752 kcals/day (30-35 kcal/kg IBW for wt repletion) Estimated Protein Required (g/day) 110-146 g/day (1.5-2 g/kg IBW for wt/muscle mass repletion) Estimated Fluid Required (l/day) 2.1-2.5 L/day (1 ml/kcal/day) Problem/Etiology/Signs/Symptoms Impaired nutrient utilization R/T lifestyle factors AEB severe alcohol and tobacco dependence. Malnutrition R/T protein and kcal deficit AEB 72 lbs CBW (45% IBW), severe alcohol dependence, and low PO intake. (*no longer applicable) Expected Outcomes/Goals - Monitor appetite and PO intakes w/ goal of pt meeting at least 75% of estimated nutritional needs, labs trending WNL, normal GI function, and skin integrity/wt maintenance and repletion. Dietitian Recommendations * Continue regular diet * Recommend Ensure Enlive BID. Chocolate flavor only. * Continue remeron which also stimulates appetite. * Consider Banatrol TID if diarrhea persists. Follow Up High Risk: F/U in 2-3days
--- NOTE | 2020-07-11 14:29 | NUR ---
Dietitian Recommendations * Continue regular diet * Recommend Ensure Enlive BID. Chocolate flavor only. * Continue remeron which also stimulates appetite. * Consider Banatrol TID if diarrhea persists. Please see Nutrition F/U note for details. BLANCA BLANC
[2020-07-11] MEDS ORDERED: Multivitamins Tab PO (15:59)
[2020-07-11] MEDS ORDERED: Thiamine Hcl PO (15:59)
[2020-07-11] MEDS ORDERED: FOLI-43 PO (15:59)
[2020-07-11] MEDS ORDERED: REM15 PO (15:59)
[2020-07-11 17:10] VITALS: BP_SYST 111
[2020-07-11 17:37] VITALS: BP_SYST 111
--- NOTE | 2020-07-11 20:08 | NUR ---
D/C Patient Patient given medication reconciliation form and D/C instructions. Exit Care provided. Patient verbalized understanding. MD discussed with patient the results and treatment provided. Ambulatory with steady gait for discharge to home. Patient in stable condition, ID band removed. IV catheter removed, intact and dressing applied, no active bleeding. Rx given. Patient educated on pain management. All belongings sent with patient.
== END 2020-07-11 20:10 | disposition home or self-care (01) | DRG 640 ==
LOC: SED 13:51 → EDBD 13:51 → SIC 16:35 → STU 07-08 14:39 → SMU 07-10 21:08
PROVIDERS: ADMIT Preventive Medicine Preventive Medicine/Occupational Environmental Medicine; ATTEND Preventive Medicine Preventive Medicine/Occupational Environmental Medicine
DX: E87.6 Hypokalemia (principal); E43 Unspecified severe protein-calorie malnutrition; J96.22 Acute and chronic respiratory failure with hypercapnia; R45.851 Suicidal ideations; F10.20 Alcohol dependence, uncomplicated; E87.3 Alkalosis; D53.9 Nutritional anemia, unspecified; E83.51 Hypocalcemia; F32.9 Major depressive disorder, single episode, unspecified; F17.210 Nicotine dependence, cigarettes, uncomplicated; G47.00 Insomnia, unspecified; F19.10 Other psychoactive substance abuse, uncomplicated; Z20.828 Contact with and (suspected) exposure to other viral communicable diseases; R45.850 Homicidal ideations; R73.9 Hyperglycemia, unspecified; R74.0 Nonspecific elevation of levels of transaminase and lactic acid dehydrogenase [LDH]; Z91.19 Patient's noncompliance with other medical treatment and regimen; Z68.21 Body mass index [BMI] 21.0-21.9, adult
CPT/HCPCS: 36415; 36600; 80048; 80053; 80307; 81000-TC; 82803-TC; 83735-TC; 84100-TC; 85025; 87081; 87086; 93005; 96365; 96366; 96367; 99285; G0378; G0482; J1120; J2405; J3480; J7042; J7050